=== PATIENT | male | born 1955 | race Hispanic/Latino ===

== ENCOUNTER 2016-11-17 03:25 | Observation (INO) | payer MEDICAID, OTHER ==
[2016-11-17 03:38] VITALS: BMI 30.7
--- NOTE | 2016-11-17 03:50 | ED PDOC ---
Arrival/HPI - General Time Seen by Provider: 11/17/16 03:41 Historian: Patient, Spouse - History of Present Illness Narrative History of Present Illness (Text): 11/17/16 03:47 Jorge Weeks is a 61 year old male, whose past medical history includes hypertension, hyperlipidemia, alcohol abuse, and polysubstance abuse, who presents to the Emergency department complaining of chest pain. Patient states he began experiencing constant left-sided chest pain while sleeping a few hours prior to arrival. Patient notes he did a lot of walking yesterday. Patient denies any fever, chills, shortness of breath, nausea, vomiting, diarrhea, urinary symptoms, back pain, neck pain, headache, dizziness, or any other complaints. PMD: Dr. Francis Sharma Symptom Onset: Gradual Symptom Course: Unchanged Activities at Onset: Light, Sleeping Context: Home Past Medical History - Provider Review Nursing Documentation Reviewed: Yes - Infectious Disease Hx of Infectious Diseases: None - Tetanus Immunization Tetanus Immunization: Unknown - Cardiac Hx Hypertension: Yes - Pulmonary Hx Respiratory Disorders: No Hx Tuberculosis: No - Neurological Hx Neurological Disorder: No HX Cerebrovascular Accident: No Hx Seizures: No - HEENT Hx HEENT Disorder: No - Renal Hx Renal Disorder: No - Endocrine/Metabolic Hx Endocrine Disorders: No - Hematological/Oncological Hx Blood Disorders: No Hx Cancer: No - Integumentary Hx Dermatological Disorder: No - Musculoskeletal/Rheumatological Hx Musculoskeletal Disorders: No Hx Falls: No Other/Comment: surgery tib fic 2009 - Gastrointestinal Hx Gastrointestinal Disorders: No - Genitourinary/Gynecological Hx Genitourinary Disorders: No Hx Sexually Transmitted Diseases: No - Psychiatric Hx Substance Use: Yes - Surgical History Hx Tonsillectomy: Yes - Anesthesia Hx Anesthesia: Yes Hx Anesthesia Reactions: No Hx Malignant Hyperthermia: No - Suicidal Assessment Feels Threatened In Home Enviroment: No Family/Social History - Physician Review Nursing Documentation Reviewed: Yes Family/Social History: Unknown Family HX Smoking Status: Never Smoked Hx Alcohol Use: No Hx Substance Use: Yes Substance used: Heroin Hx Substance Use Treatment: No Allergies/Home Meds Allergies/Adverse Reactions: Allergies No Known Allergies Allergy (Verified 09/01/14 09:34) Review of Systems - Physician Review All systems were reviewed & negative as marked: Yes - Review of Systems Constitutional: Normal. absent: Fevers Eyes: Normal ENT: Normal Respiratory: Normal. absent: SOB, Cough Cardiovascular: Chest Pain Gastrointestinal: Normal. absent: Abdominal Pain, Diarrhea, Nausea, Vomiting Genitourinary Male: Normal. absent: Dysuria, Frequency, Hematuria, Urinary Output Changes Musculoskeletal: Normal. absent: Back Pain, Neck Pain Skin: Normal. absent: Rash Neurological: Normal Endocrine: Normal Hemo/Lymphatic: Normal Psychiatric: Normal Physical Exam Vital Signs Reviewed: Yes Vital Signs Temp Pulse Resp BP Pulse Ox 11/17/16 06:29 56 L 16 138/79 95 11/17/16 03:36 98.1 F 55 L 18 149/89 96 Temperature: Afebrile Blood Pressure: Normal Pulse: Regular Respiratory Rate: Normal Appearance: Positive for: Well-Appearing, Non-Toxic, Comfortable Pain Distress: None Mental Status: Positive for: Alert and Oriented X 3 - Systems Exam Head: Present: Atraumatic, Normocephalic Pupils: Present: PERRL Extroacular Muscles: Present: EOMI Conjunctiva: Present: Normal Mouth: Present: Moist Mucous Membranes Neck: Present: Normal Range of Motion Respiratory/Chest: Present: Clear to Auscultation, Good Air Exchange. No: Respiratory Distress, Accessory Muscle Use Cardiovascular: Present: Regular Rate and Rhythm, Normal S1, S2. No: Murmurs Abdomen: Present: Normal Bowel Sounds. No: Tenderness, Distention, Peritoneal Signs Back: Present: Normal Inspection Upper Extremity: Present: Normal Inspection. No: Cyanosis, Edema Lower Extremity: Present: Normal Inspection. No: Edema Neurological: Present: GCS=15, CN II-XII Intact, Speech Normal Skin: Present: Warm, Dry, Normal Color. No: Rashes Psychiatric: Present: Alert, Oriented x 3, Normal Insight, Normal Concentration Medical Decision Making ED Course and Treatment: 11/17/16 03:47 Impression: 61 year old male complaining of left-sided chest pain tonight.Diff.DX include cor insufficiency/pneumonia/pneumothorax/PE/costochondritis Plan: -- EKG -- Chest X-ray -- Labs, cardiac enzymes, D-dimer -- Reassess and disposition Progress Notes: Reviewed EKG, sinus bradycardia at [address] bpm[address] Non-specific ST/T wave changes. 11/17/16 04:40 Reviewed radiology, Chest X-ray shows no acute processes. 11/17/16 06:55 Case was d/w medical laboratory scientist.Pt. to be admitted to hospitalist service - Lab Interpretations Lab Results: 11/17/16 04:15 11/17/16 04:15 Lab Results 11/17/16 04:15: WBC 7.9, RBC 4.73, Hgb 13.2 L, Hct 38.6 L, MCV 81.6, MCH 27.9, MCHC 34.2, RDW 13.7, Plt Count 246, MPV 9.1 11/17/16 04:15: Sodium 141, Potassium 4.0, Chloride 102, Carbon Dioxide 28, Anion Gap 15, BUN 25 H, Creatinine 0.7, Est GFR ( Amer) > 60, Est GFR ( Non-Af Amer) > 60, Random Glucose 102, Calcium 9.3, Total Bilirubin 0.6, AST 40 , ALT 42, Alkaline Phosphatase 102, Lactate Dehydrogenase 413, Total Creatine Kinase 79, Troponin I 0.02, Total Protein 7.5, Albumin 4.2, Globulin 3.3, Albumin/Globulin Ratio 1.3 11/17/16 04:15: PT 11.0, INR 1.02, APTT 27.5, D-Dimer, Quantitative 0.78 H - RAD Interpretation Radiology Orders: 11/17/16 03:49 CHEST PORTABLE [RAD] Stat 11/17/16 05:22 ANGIO CHEST PE PROTOCOL [CT] Stat - EKG Interpretation Interpreted by ED Physician: Yes Type: 12 lead EKG - Medication Orders Current Medication Orders: Discontinued Medications Sodium Chloride (Sodium Chloride 0.9%) 1,000 mls @ 999 mls/hr IV .Q1H1M STA Stop: 11/17/16 06:19 Last Admin: 11/17/16 06:27 Dose: 999 mls/hr Iohexol (Omnipaque 300 100 Ml) Confirm Administered Dose 100 ml IJ .STK-MED ONE Stop: 11/17/16 05:52 Last Admin: 11/17/16 06:27 Dose: 100 ml - Scribe Statement The provider has reviewed the documentation as recorded by the Polina Dick Provider Scribe Attestation: All medical record entries made by the Scribe were at my direction and personally dictated by me. I have reviewed the chart and agree that the record accurately reflects my personal performance of the history, physical exam, medical decision making, and the department course for this patient. I have also personally directed, reviewed, and agree with the discharge instructions and disposition. Disposition/Present on Arrival - Present on Arrival Any Indicators Present on Arrival: No History of DVT/PE: No History of Uncontrolled Diabetes: No Urinary Catheter: No History Surgical Site Infection Following: None - Disposition Have Diagnosis and Disposition been Completed?: Yes Diagnosis: Chest pain Disposition: HOSPITALIZED Disposition Time: 07:01 Patient Plan: Observation Condition: STABLE Discharge Instructions (ExitCare): Chest Pain (ED) Referrals: Adelso Sharma MD [Primary Care Provider] - Follow up with primary
[2016-11-17 04:41] LABS: ALB/GLOB RATIO 1.3 (1.1-1.8); ALBUMIN 4.2 g/dL (3.0-4.8); ALT/SGPT 42 U/L (7-56); AST/SGOT 40 U/L (15-59); BLOOD UREA NITROGEN 25 mg/dL (7-21); CALCIUM 9.3 mg/dL (8.4-10.5); GFR AFRICAN-AMERICAN > 60; GFR NON-AFRICAN AMERICAN > 60
[2016-11-17 04:43] LABS: HEMOGLOBIN 13.2 g/dL (14.0-18.0); MEAN CELL VOLUME 81.6 fl (80.0-105.0); MEAN CORPUSCULAR HEMOGLOBIN 27.9 pg (25.0-35.0); MEAN CORPUSCULAR HGB CONC 34.2 g/dl (31.0-37.0); MEAN PLATELET VOLUME 9.1 fl (7.0-11.0); RBC 4.73 10^6/uL (3.5-6.1); RED CELL DISTRIBUTION WIDTH 13.7 % (11.5-14.5); WHITE BLOOD COUNT 7.9 10^3/ul (4.5-11.0)
[2016-11-17 04:50] LABS: INR 1.02 (0.93-1.08); PARTIAL THROMBOPLASTIN TIME 27.5 Seconds (23.7-30.8)
[2016-11-17 04:53] LABS: D DIMER 0.78 mg/L FEU (0-0.50); TROPONIN I 0.02 ng/mL
[2016-11-17] MEDS ORDERED: Sodium Chloride 0.9% 1,000 ML IV STA (05:19)
[2016-11-17] MEDS ORDERED: Iohexol 300 100 ML IJ ONE (05:51)
[2016-11-17 06:30] VITALS: O2SAT 95
--- NOTE | 2016-11-17 06:36 | CT ---
EXAM: CT Angiography Chest With Intravenous Contrast CLINICAL HISTORY: 61 years old, male; Pain; Chest pain; Left-sided chest pain; Additional info: SOB TECHNIQUE: Axial computed tomographic angiography images of the chest with intravenous contrast using pulmonary embolism protocol. All CT scans at this facility use one or more dose reduction techniques, viz.: automated exposure control; ma/kV adjustment per patient size (including targeted exams where dose is matched to indication; i.e. head); or iterative reconstruction technique. MIP reconstructed images were created and reviewed. Coronal and sagittal reformatted images were created and reviewed. CONTRAST: 100 mL of OMNI 300 administered intravenously. EXAM DATE/TIME: 11/17/2016 5:22 AM COMPARISON: DX - CHEST PORTABLE 11/17/2016 4:08:27 AM FINDINGS: Pulmonary arteries: No evidence of pulmonary embolism. Aorta: No thoracic aortic aneurysm or dissection. Superior vena cava: Examination this slightly limited by streak artifacts from dense contrast in SVC. Lungs: Nodule in inferior right upper lobe against the minor fissure of 5 mm. Two [id number] nodules of 3 and 4 mm in superior segment right lower lobe adjacent to major fissure. Mild dependent changes posterior lower lobes. Pleural space: Unremarkable. No significant effusion. No pneumothorax. Heart: Unremarkable. No cardiomegaly. No significant pericardial effusion. No evidence of RV dysfunction. Mediastinum: Small hiatal hernia. Bones/joints: Spondylosis thoracic spine. Mild superior endplate compression of L1. Soft tissues: Unremarkable. Lymph nodes: No enlarged lymph nodes. IMPRESSION: 1. No evidence of pulmonary embolism. 2. Right upper and lower lobe nodules. Fleischner Society guidelines for lung nodules 4-6mm: 6 to 12 month, and 12 to 24 months follow-up for smokers (2 more CTs in 2 year period); 1 year follow-up for nonsmokers.
[2016-11-17 08:11] LABS: HDL CHOLESTEROL 24 mg/dL (29-60)
[2016-11-17 08:21] LABS: LDL CHOLESTEROL 95 mg/dL (0-129)
[2016-11-17 08:53] VITALS: PULSE 49; RESP 18; TEMP 97.7
[2016-11-17 10:04] LABS: TROPONIN I 0.02 ng/mL
[2016-11-17 11:23] VITALS: BP 155/94
--- NOTE | 2016-11-17 11:54 | CP.PCM.HP ---
History of Present Illness - History of Present Illness History of Present Illness: History and Physical for Dr. Bruce 61 year old male presented to the ED for chest pain. Patient has a past medical histosry of HTN, HLD, ETOH abuse, and polysubstance abuse. Patient is on the Methadone program at [facility]. Patient states he walked 30-40 blocks and felt left sided chest pain localized to below his breast tissue. Patient denies F/C , SOB, N/V, Back pain, neck pain, and headache, and dizziness or any complaints. Present on Admission - Present on Admission Any Indicators Present on Admission: No History of DVT/PE: No History of Uncontrolled Diabetes: No Urinary Catheter: No Decubitus Ulcer Present: No Past Patient History - Infectious Disease Hx of Infectious Diseases: None - Tetanus Immunizations Tetanus Immunization: Unknown - Past Medical History & Family History Past Medical History?: Yes - Past Social History Smoking Status: Never Smoked - CARDIAC Hx Hypertension: Yes - PULMONARY Hx Respiratory Disorders: No Hx Tuberculosis: No - NEUROLOGICAL Hx Neurological Disorder: No HX Cerebrovascular Accident: No Hx Seizures: No - HEENT Hx HEENT Problems: No - RENAL Hx Chronic Kidney Disease: No - ENDOCRINE/METABOLIC Hx Endocrine Disorders: No - HEMATOLOGICAL/ONCOLOGICAL Hx Blood Disorders: No Hx Cancer: No - INTEGUMENTARY Hx Dermatological Problems: No - MUSCULOSKELETAL/RHEUMATOLOGICAL Hx Musculoskeletal Disorders: No Hx Falls: No Other/Comment: surgery tib fic 2009 - GASTROINTESTINAL Hx Gastrointestinal Disorders: No - GENITOURINARY/GYNECOLOGICAL Hx Genitourinary Disorders: No Hx Sexually Transmitted Disorders: No - PSYCHIATRIC Hx Substance Use: Yes - SURGICAL HISTORY Hx Tonsillectomy: Yes - ANESTHESIA Hx Anesthesia: Yes Hx Anesthesia Reactions: No Hx Malignant Hyperthermia: No Meds Home Medications: Home Medication List Medication Instructions Recorded Confirmed Type Atorvastatin [Lipitor] 20 mg PO DAILY #14 tab 11/17/16 Rx Ibuprofen [Motrin Tab] 400 mg PO TID tab 11/17/16 Rx Ibuprofen [Motrin] 400 mg PO TID #9 tab 11/17/16 Rx Allergies/Adverse Reactions: Allergies Allergy/AdvReac Type Severity Reaction Status Date / Time No Known Allergies Allergy Verified 09/01/14 09:34 Physical Exam - Constitutional Appears: Non-toxic - Head Exam Head Exam: NORMAL INSPECTION - Eye Exam Eye Exam: EOMI, Normal appearance - ENT Exam ENT Exam: Mucous Membranes Moist - Respiratory Exam Respiratory Exam: NORMAL BREATHING PATTERN. absent: Accessory Muscle Use, Respiratory Distress - Cardiovascular Exam Cardiovascular Exam: Bradycardia, REGULAR RHYTHM. absent: Tachycardia - GI/Abdominal Exam GI & Abdominal Exam: Normal Bowel Sounds, Soft. absent: Tenderness - Extremities Exam Extremities exam: Positive for: full ROM, normal inspection. Negative for: pedal edema - Neurological Exam Neurological exam: Alert, Normal Gait, Oriented x3 - Psychiatric Exam Psychiatric exam: Normal Affect, Normal Mood - Skin Skin Exam: Dry, Intact, Normal Color, Warm Results - Vital Signs Recent Vital Signs: Last Vital Signs Temp 97.7 F 11/17/16 08:53 Pulse 49 L 11/17/16 08:53 Resp 18 11/17/16 08:53 BP 155/94 H 11/17/16 11:20 Pulse Ox 95 11/17/16 08:53 - Labs Result Diagrams: 11/17/16 04:15 11/17/16 04:15 Labs: Laboratory Results - last 24 hr 11/17/16 11/17/16 11/17/16 08:01 08:10 09:30 Lactate Dehydrogenase 413 Total Creatine Kinase 66 Troponin I 0.02 Triglycerides 310 H Cholesterol 192 LDL Cholesterol Direct 95 HDL Cholesterol 24 L TSH 3rd Generation 2.69 Assessment & Plan - Assessment and Plan (Free Text) Assessment: 61 M with pectoralis muscle strain, chest pain (non-radiating and reproducible) . PMH HTN, HLD, ETOH abuse history, and polysubstance abuse hx Plan: EKG: bradycardia NSR Motrin 400mg POBID #9 Imaging showed 11/17 EK sinus bradycardia 11/[address]: no evidence of PE, right upper and lower lobe nodules. inferior right upper lobe 5 mm, 3 mm and 4 mm nodules in superior segment right lower lobe near major fissure. 11/17 CXR: No active disease 11/17 EK sinus Bradycardia. No need for Cardiology consult at this time - Date & Time Date: 11/17/16 Time: 17:39
--- NOTE | 2016-11-17 11:54 | CP.PCM.DIS ---
Provider - Provider Date of Admission: 11/17/16 07:02 Attending physician: Cornell Burch MD Primary care physician: Adelso Sharma MD Consults: Patient arrived to the ED from Time Spent in preparation of Discharge (in minutes): 20 Hospital Course - Lab Results Lab Results: Most Recent Lab Values WBC 7.9 10^3/ul (4.5-11.0) 11/17/16 04:15 RBC 4.73 10^6/uL (3.5-6.1) 11/17/16 04:15 Hgb 13.2 g/dL (14.0-18.0) L 11/17/16 04:15 Hct 38.6 % (42.0-52.0) L 11/17/16 04:15 MCV 81.6 fl (80.0-105.0) 11/17/16 04:15 MCH 27.9 pg (25.0-35.0) 11/17/16 04:15 MCHC 34.2 g/dl (31.0-37.0) 11/17/16 04:15 RDW 13.7 % (11.5-14.5) 11/17/16 04:15 Plt Count 246 10^3/uL (120.0-450.0) 11/17/16 04:15 MPV 9.1 fl (7.0-11.0) 11/17/16 04:15 PT 11.0 Seconds (9.9-11.8) 11/17/16 04:15 INR 1.02 (0.93-1.08) 11/17/16 04:15 APTT 27.5 Seconds (23.7-30.8) 11/17/16 04:15 D-Dimer, Quantitative 0.78 mg/L FEU (0-0.50) H 11/17/16 04:15 Sodium 141 mmol/L (132-148) 11/17/16 04:15 Potassium 4.0 mmol/L (3.6-5.0) 11/17/16 04:15 Chloride 102 mmol/L (98-107) 11/17/16 04:15 Carbon Dioxide 28 mmol/L (21-33) 11/17/16 04:15 Anion Gap 15 (10-20) 11/17/16 04:15 BUN 25 mg/dL (7-21) H 11/17/16 04:15 Creatinine 0.7 mg/dL (0.5-1.4) 11/17/16 04:15 Est GFR ( Amer) > 60 11/17/16 04:15 Est GFR (Non-Af Amer) > 60 11/17/16 04:15 Random Glucose 102 mg/dL (70-110) 11/17/16 04:15 Calcium 9.3 mg/dL (8.4-10.5) 11/17/16 04:15 Total Bilirubin 0.6 mg/dL (0.2-1.3) 11/17/16 04:15 AST 40 U/L (15-59) 11/17/16 04:15 ALT 42 U/L (7-56) 11/17/16 04:15 Alkaline Phosphatase 102 U/L (38-133) 11/17/16 04:15 Lactate Dehydrogenase 413 U/L (333-699) 11/17/16 09:30 Total Creatine Kinase 66 U/L (35-230) 11/17/16 09:30 Troponin I 0.02 ng/mL 11/17/16 09:30 Total Protein 7.5 g/dL (5.8-8.3) 11/17/16 04:15 Albumin 4.2 g/dL (3.0-4.8) 11/17/16 04:15 Globulin 3.3 gm/dL 11/17/16 04:15 Albumin/Globulin Ratio 1.3 (1.1-1.8) 11/17/16 04:15 Triglycerides 310 mg/dL (35-160) H 11/17/16 08:01 Cholesterol 192 mg/dL (130-200) 11/17/16 08:01 LDL Cholesterol Direct 95 mg/dL (0-129) 11/17/16 08:01 HDL Cholesterol 24 mg/dL (29-60) L 11/17/16 08:01 TSH 3rd Generation 2.69 mIU/mL (0.46-4.68) 11/17/16 08:10 Discharge Plan - Follow Up Plan Condition: STABLE Disposition: HOME/ ROUTINE Instructions: Chest Pain (DC), Chest Pain (GEN), Muscle Strain (GEN) Additional Instructions: continue on current home medication. (Zantac and Home high blood pressure medication) continue motrin 400 mg TID for 3 more days at home. last day: 11/20. Take with food. Avoid heavy lifting for 2-3 days 20 mg Lipitor once a day. follow up with Dr. Sharma in one week to continue with prescription. [facility] f/u lipid panel in 8 weeks, adjust lipitor accordingly. stop if muscle cramps occur (common side effect of statin class of medication) f/u with [facility] for Methadone Referrals: Adelso Sharma MD [Primary Care Provider] -
--- NOTE | 2016-11-17 11:55 | CP.PCM.DIS ---
<JimJanet - Last Filed: 11/17/16 17:44> Provider - Provider Date of Admission: 11/17/16 07:02 Attending physician: Cornell Burch MD Primary care physician: Adelso Sharma MD Time Spent in preparation of Discharge (in minutes): 20 Hospital Course - Lab Results Lab Results: Most Recent Lab Values WBC 7.9 10^3/ul (4.5-11.0) 11/17/16 04:15 RBC 4.73 10^6/uL (3.5-6.1) 11/17/16 04:15 Hgb 13.2 g/dL (14.0-18.0) L 11/17/16 04:15 Hct 38.6 % (42.0-52.0) L 11/17/16 04:15 MCV 81.6 fl (80.0-105.0) 11/17/16 04:15 MCH 27.9 pg (25.0-35.0) 11/17/16 04:15 MCHC 34.2 g/dl (31.0-37.0) 11/17/16 04:15 RDW 13.7 % (11.5-14.5) 11/17/16 04:15 Plt Count 246 10^3/uL (120.0-450.0) 11/17/16 04:15 MPV 9.1 fl (7.0-11.0) 11/17/16 04:15 PT 11.0 Seconds (9.9-11.8) 11/17/16 04:15 INR 1.02 (0.93-1.08) 11/17/16 04:15 APTT 27.5 Seconds (23.7-30.8) 11/17/16 04:15 D-Dimer, Quantitative 0.78 mg/L FEU (0-0.50) H 11/17/16 04:15 Sodium 141 mmol/L (132-148) 11/17/16 04:15 Potassium 4.0 mmol/L (3.6-5.0) 11/17/16 04:15 Chloride 102 mmol/L (98-107) 11/17/16 04:15 Carbon Dioxide 28 mmol/L (21-33) 11/17/16 04:15 Anion Gap 15 (10-20) 11/17/16 04:15 BUN 25 mg/dL (7-21) H 11/17/16 04:15 Creatinine 0.7 mg/dL (0.5-1.4) 11/17/16 04:15 Est GFR ( Amer) > 60 11/17/16 04:15 Est GFR (Non-Af Amer) > 60 11/17/16 04:15 Random Glucose 102 mg/dL (70-110) 11/17/16 04:15 Calcium 9.3 mg/dL (8.4-10.5) 11/17/16 04:15 Total Bilirubin 0.6 mg/dL (0.2-1.3) 11/17/16 04:15 AST 40 U/L (15-59) 11/17/16 04:15 ALT 42 U/L (7-56) 11/17/16 04:15 Alkaline Phosphatase 102 U/L (38-133) 11/17/16 04:15 Lactate Dehydrogenase 413 U/L (333-699) 11/17/16 09:30 Total Creatine Kinase 66 U/L (35-230) 11/17/16 09:30 Troponin I 0.02 ng/mL 11/17/16 09:30 Total Protein 7.5 g/dL (5.8-8.3) 11/17/16 04:15 Albumin 4.2 g/dL (3.0-4.8) 11/17/16 04:15 Globulin 3.3 gm/dL 11/17/16 04:15 Albumin/Globulin Ratio 1.3 (1.1-1.8) 11/17/16 04:15 Triglycerides 310 mg/dL (35-160) H 11/17/16 08:01 Cholesterol 192 mg/dL (130-200) 11/17/16 08:01 LDL Cholesterol Direct 95 mg/dL (0-129) 11/17/16 08:01 HDL Cholesterol 24 mg/dL (29-60) L 11/17/16 08:01 TSH 3rd Generation 2.69 mIU/mL (0.46-4.68) 11/17/16 08:10 - Hospital Course Hospital Course: Discharage summary for Dr. Bruce 61 year old male presented to the ED for chest pain. Patient has a past medical histosry of HTN, HLD, ETOH abuse, and polysubstance abuse. Patient is on the Methadone program at [facility]. Patient states he walked 30-40 blocks and felt left sided chest pain localized to below his breast tissue. Patient denies F/C , SOB, N/V, Back pain, neck pain, and headache, and dizziness or any complaints. PT seen and examined at bedside. Patient denies F/C, SOB, radiating chest pain, N/V. admits to reproducible chest pain. Patient denies palpations denies any family history of heart disease and heart problems. - Date & Time of H&P Date of H&P: 11/17/16 Time of H&P: 17:43 Discharge Exam - Additional Findings Additional findings: Constitutional Appears: Non-toxic - Head Exam Head Exam: NORMAL INSPECTION - Eye Exam Eye Exam: EOMI, Normal appearance, no scleral icterus - ENT Exam ENT Exam: Mucous Membranes Moist - Respiratory Exam Respiratory Exam: NORMAL BREATHING PATTERN. absent: Accessory Muscle Use, Respiratory Distress - Cardiovascular Exam Cardiovascular Exam: Bradycardia, REGULAR RHYTHM. absent: Tachycardia - GI/Abdominal Exam GI & Abdominal Exam: Normal Bowel Sounds, Soft. absent: Tenderness - Extremities Exam Extremities exam: Positive for: full ROM, normal inspection. Negative for: pedal edema - Neurological Exam Neurological exam: Alert, Normal Gait, Oriented x3 - Psychiatric Exam Psychiatric exam: Normal Affect, Normal Mood Patient was easily agreeable. not agitated - Skin Skin Exam: Dry, Intact, Normal Color, Warm Discharge Plan - Discharge Medications Prescriptions: Atorvastatin [Lipitor] 20 mg PO DAILY #14 tab Ibuprofen [Motrin] 400 mg PO TID #9 tab - Follow Up Plan Condition: STABLE Disposition: HOME/ ROUTINE Instructions: Chest Pain (DC), Chest Pain (GEN), Muscle Strain (GEN) Additional Instructions: continue on current home medication. (Zantac and Home high blood pressure medication) continue motrin 400 mg TID for 3 more days at home. last day: 11/20. Take with food. Avoid heavy lifting for 2-3 days 20 mg Lipitor once a day. follow up with Dr. Sharma in one week to continue with prescription. [facility] f/u lipid panel in 8 weeks, adjust lipitor accordingly. stop if muscle cramps occur (common side effect of statin class of medication) f/u with [facility] for Methadone encourage lifestyle changes (decrease salt intake, increase exercise, decrease fried food and fatty food intake if possible.) Referrals: Adelso Sharma MD [Primary Care Provider] - <Zina Bruce - Last Filed: 11/17/16 21:05> Provider - Provider Date of Admission: 11/17/16 07:02 Attending physician: Cornell Burch MD Primary care physician: Adelso Sharma MD Hospital Course - Lab Results Lab Results: Most Recent Lab Values WBC 7.9 10^3/ul (4.5-11.0) 11/17/16 04:15 RBC 4.73 10^6/uL (3.5-6.1) 11/17/16 04:15 Hgb 13.2 g/dL (14.0-18.0) L 11/17/16 04:15 Hct 38.6 % (42.0-52.0) L 11/17/16 04:15 MCV 81.6 fl (80.0-105.0) 11/17/16 04:15 MCH 27.9 pg (25.0-35.0) 11/17/16 04:15 MCHC 34.2 g/dl (31.0-37.0) 11/17/16 04:15 RDW 13.7 % (11.5-14.5) 11/17/16 04:15 Plt Count 246 10^3/uL (120.0-450.0) 11/17/16 04:15 MPV 9.1 fl (7.0-11.0) 11/17/16 04:15 PT 11.0 Seconds (9.9-11.8) 11/17/16 04:15 INR 1.02 (0.93-1.08) 11/17/16 04:15 APTT 27.5 Seconds (23.7-30.8) 11/17/16 04:15 D-Dimer, Quantitative 0.78 mg/L FEU (0-0.50) H 11/17/16 04:15 Sodium 141 mmol/L (132-148) 11/17/16 04:15 Potassium 4.0 mmol/L (3.6-5.0) 11/17/16 04:15 Chloride 102 mmol/L (98-107) 11/17/16 04:15 Carbon Dioxide 28 mmol/L (21-33) 11/17/16 04:15 Anion Gap 15 (10-20) 11/17/16 04:15 BUN 25 mg/dL (7-21) H 11/17/16 04:15 Creatinine 0.7 mg/dL (0.5-1.4) 11/17/16 04:15 Est GFR ( Amer) > 60 11/17/16 04:15 Est GFR (Non-Af Amer) > 60 11/17/16 04:15 Random Glucose 102 mg/dL (70-110) 11/17/16 04:15 Calcium 9.3 mg/dL (8.4-10.5) 11/17/16 04:15 Total Bilirubin 0.6 mg/dL (0.2-1.3) 11/17/16 04:15 AST 40 U/L (15-59) 11/17/16 04:15 ALT 42 U/L (7-56) 11/17/16 04:15 Alkaline Phosphatase 102 U/L (38-133) 11/17/16 04:15 Lactate Dehydrogenase 413 U/L (333-699) 11/17/16 09:30 Total Creatine Kinase 66 U/L (35-230) 11/17/16 09:30 Troponin I 0.02 ng/mL 11/17/16 09:30 Total Protein 7.5 g/dL (5.8-8.3) 11/17/16 04:15 Albumin 4.2 g/dL (3.0-4.8) 11/17/16 04:15 Globulin 3.3 gm/dL 11/17/16 04:15 Albumin/Globulin Ratio 1.3 (1.1-1.8) 11/17/16 04:15 Triglycerides 310 mg/dL (35-160) H 11/17/16 08:01 Cholesterol 192 mg/dL (130-200) 11/17/16 08:01 LDL Cholesterol Direct 95 mg/dL (0-129) 11/17/16 08:01 HDL Cholesterol 24 mg/dL (29-60) L 11/17/16 08:01 TSH 3rd Generation 2.69 mIU/mL (0.46-4.68) 11/17/16 08:10 Attending/Attestation - Attestation I have personally seen and examined this patient.: Yes I have fully participated in the care of the patient.: Yes I have reviewed all pertinent clinical information, including history, physical exam and plan: Yes Notes (Text): 11/17/16 21:00 Patient seen and examined at bedside. Labs, vitals and orders reviewed. Chest pain better and is localized in left ACW with point tenderness, reproducible and positional. Non smoker with no early onset family history of heart diseases. Admits to low heart rate and remains asymptomatic. Mild dyslipidemia noted and explained the patient lifestyle modifications and statin therapy. ACS ruled out. Diagnosis of costochondritis and NSAID therapy initiated and prescribed. Patient discharged symptom free and in a hemodynamically stable condition.
--- NOTE | 2016-11-17 12:03 | RAD ---
HISTORY: Chest pain. Portable study 04:10. COMPARISON: No prior. FINDINGS: LUNGS: No active pulmonary disease. PLEURA: No significant pleural effusion identified, no pneumothorax apparent. CARDIOVASCULAR: No radiographic findings to suggest acute or significant cardiovascular disease. OSSEOUS STRUCTURES: No significant abnormalities. VISUALIZED UPPER ABDOMEN: Normal. OTHER FINDINGS: None. IMPRESSION: No active disease.
--- NOTE | 2016-11-17 13:43 | CARD ---
APPROVED REPORT EKG Measurement Heart [id number] NC [id number] <Conclusion> Sinus bradycardia Cannot rule out Anterior infarct, age undetermined Abnormal ECG
--- NOTE | 2016-11-17 13:52 | CARD ---
APPROVED REPORT EKG Measurement Heart [id number] CA [id number] <Conclusion> Sinus bradycardia Otherwise normal ECG
[2016-11-18] MEDS ORDERED: Pantoprazole 20 mg EC Tab PO SCH (06:00)
== END 2016-11-17 14:25 | disposition home or self-care (01) ==
LOC: ED 03:25 → ERH 07:02 → 3RSO 08:21
PROVIDERS: ADMIT Internal Medicine; ATTEND Internal Medicine
DX: M94.0 Chondrocostal junction syndrome [Tietze] (principal); I10 Essential (primary) hypertension; F10.10 Alcohol abuse, uncomplicated; E78.5 Hyperlipidemia, unspecified; F19.10 Other psychoactive substance abuse, uncomplicated
CPT/HCPCS: 71010; 71275; 80053; 80061; 80320; 82009; 82550; 83036; 83615; 84443; 84484; 84600; 85027; 85378; 85610; 85730; 93005; 99285; G0378; J7040; Q9967

== ENCOUNTER 2018-02-16 14:46 | Emergency (ER) | payer MEDICAID, OTHER ==
[2018-02-16 14:46] VITALS: BMI 30.2
[2018-02-16 14:58] VITALS: BP 122/69; PULSE 62; RESP 18; TEMP 97.7; O2SAT 95
--- NOTE | 2018-02-16 15:05 | ED PDOC ---
Arrival/HPI - General Chief Complaint: Finger,Hand,&Wrist Time Seen by Provider: 02/16/18 14:50 Historian: Patient - History of Present Illness Time/Duration: Prior to Arrival Symptom Onset: Sudden Associated Symptoms (Text): 02/16/18 15:04 Slammed his nondominant distal right thumb in a car door just prior to arrival. Small subungual hematoma. Past Medical History - Infectious Disease Hx of Infectious Diseases: None - Tetanus Immunization Tetanus Immunization: Unknown - Cardiac Hx Cardiac Disorders: Yes Hx Hypertension: Yes - Pulmonary Hx Respiratory Disorders: No Hx Tuberculosis: No - Neurological Hx Neurological Disorder: No HX Cerebrovascular Accident: No Hx Seizures: No - HEENT Hx HEENT Disorder: No - Renal Hx Renal Disorder: No - Endocrine/Metabolic Hx Endocrine Disorders: No - Hematological/Oncological Hx Blood Disorders: No Hx Cancer: No - Integumentary Hx Dermatological Disorder: No - Musculoskeletal/Rheumatological Hx Musculoskeletal Disorders: Yes Hx Falls: No Other/Comment: surgery tib fic 2009 - Gastrointestinal Hx Gastrointestinal Disorders: Yes Hx Gastritis: Yes Hx Gastroesophageal Reflux: Yes - Genitourinary/Gynecological Hx Genitourinary Disorders: No Hx Sexually Transmitted Diseases: No - Psychiatric Hx Psychophysiologic Disorder: Yes Hx Depression: No Hx Emotional Abuse: No Hx Physical Abuse: No Hx Substance Use: Yes (HEROIN) Other/Comment: recently using intranasal mostly heroin 4 to 12 bags daily depending on quality of dope. Denies smoking or etoh, has also been using oxycotin and percocet on street - Surgical History Hx Orthopedic Surgery: Yes (left lower leg) Hx Tonsillectomy: Yes - Anesthesia Hx Anesthesia: Yes Hx Anesthesia Reactions: No Hx Malignant Hyperthermia: No - Suicidal Assessment Feels Threatened In Home Enviroment: No Family/Social History - Physician Review Nursing Documentation Reviewed: Yes Family/Social History: Unknown Family HX Smoking Status: Never Smoked Hx Alcohol Use: No Hx Substance Use: Yes (HEROIN) Substance used: Heroin Hx Substance Use Treatment: No Allergies/Home Meds Allergies/Adverse Reactions: Allergies No Known Allergies Allergy (Verified 09/01/14 09:34) Home Medications: Home Meds Medication Instructions Recorded Confirmed Pantoprazole Sodium [Protonix] 20 mg PO DAILY 11/17/16 02/16/18 Aspirin 1 tab PO DAILY 01/20/17 02/16/18 Methadone 80 mg PO DAILY 01/20/17 02/16/18 Tamsulosin [Flomax] 1 tab PO DAILY 01/20/17 02/16/18 amLODIPine [Norvasc] 1 tab PO DAILY 01/20/17 02/16/18 Review of Systems - Physician Review All systems were reviewed & negative as marked: Yes Physical Exam Vital Signs Temp Pulse Resp BP Pulse Ox 02/16/18 14:56 97.7 F 62 18 122/69 95 Temperature: Afebrile Blood Pressure: Normal Pulse: Regular Respiratory Rate: Normal Appearance: Positive for: Well-Appearing, Non-Toxic, Uncomfortable Pain Distress: Mild Mental Status: Positive for: Alert and Oriented X 3 - Systems Exam Upper Extremity: Present: Normal ROM, NORMAL PULSES, Tenderness, Neurovascularly Intact, Other (Distal right thumb tenderness with small subungual hematoma. Full range of motion.). No: Normal Inspection, Cyanosis, Edema, Swelling, Erythema, Deformity Medical Decision Making ED Course and Treatment: 02/16/18 15:22 Subungual hematoma was drained with electrocautery. Splint applied by the EMT. - RAD Interpretation Radiology Orders: 02/16/18 15:01 HAND RIGHT THUMB [RAD] Stat Right thumb x-ray shows no fracture or dislocation. Paper Handler: ED Physician Disposition/Present on Arrival - Present on Arrival Any Indicators Present on Arrival: No History of DVT/PE: No History of Uncontrolled Diabetes: No Urinary Catheter: No History of Decub. Ulcer: No History Surgical Site Infection Following: None - Disposition Have Diagnosis and Disposition been Completed?: Yes Diagnosis: Subungual hematoma, Thumb contusion Disposition: HOME/ ROUTINE Disposition Time: 15:23 Patient Plan: Discharge Condition: IMPROVED Discharge Instructions (ExitCare): Contusion (DC) Additional Instructions: Rest ice and elevation. Follow-up with PMD. Follow up in ER as needed. Prescriptions: Ketorolac Tromethamine [Toradol] 10 mg PO Q6 #20 tab Forms: [facility] (Lao), WORK NOTE
--- NOTE | 2018-02-16 15:28 | RAD ---
PROCEDURE: Right Hand Radiographs. HISTORY: trauma COMPARISON: None. FINDINGS: BONES: Normal. No fracture. JOINTS: Normal. No osteoarthritic changes. SOFT TISSUES: Normal. OTHER FINDINGS: None. IMPRESSION: Normal right hand radiographs.
== END 2018-02-16 15:30 | disposition home or self-care (01) ==
LOC: ED 14:46
DX: S60.011A Contusion of right thumb without damage to nail, initial encounter (principal); W23.0XXA Caught, crushed, jammed, or pinched between moving objects, initial encounter; Y92.9 Unspecified place or not applicable